=== PATIENT | female | born 1980 | race African-American/Black ===

== ENCOUNTER 2019-04-09 17:46 | Emergency (ER) | payer MEDICAID ==
[~2019-04-09] VITALS: Ht 167.6 cm; Wt 73.0 kg
--- NOTE | 2019-04-09 18:12 | NUR ---
THIS IS A 38 YO FEMALE COMING IN FOR CHEST PAINS THAT HAVE BEEN HAPPENING FOR A MONTH ON AND OFF. LOCATION OF PAIN IS UNDER LEFT BREAST CURRENTLY A 7/10 PAIN RATING. PATIENT STATES IT HAPPENS 2-3 TIMES PER DAY LASTING 15-20 MINUTES. PATIENT STATES IT HAS BEEN HAPPENING MORE OFTEN AND LASTING LONGER THE PAST FEW DAYS, IT GETS WORSE WITH CHANGE IN POSITIONING. PATIENT DENIES ANY MEDICAL HX. PATIENT PLACED ON SHOE CUTTER, NSR NOTED. CONTINUOUS SPO2 AT 100%, CYCLE BP Q1HR. NEEDS ADDRESSED CALL LIGHT IN REACH.
--- NOTE | 2019-04-09 18:48 | NUR ---
Pt report from Florencia chowdhury. This rn to assume care of pt.
[2019-04-09] MEDS ORDERED: SODIUM CHLORIDE FLUSH 10ML SYR IVF ONE (19:00)
--- NOTE | 2019-04-09 19:06 | NUR ---
Lab at bedside.
[2019-04-09 19:20] LABS: ALANINE AMINOTRANSFERASE 23 U/L (12-78); ALBUMIN 3.5 g/dL (3.4-5.0); ANION GAP 5 mmol/L (5-15); CALCIUM 8.8 mg/dL (8.5-10.1); CHLORIDE 109 mmol/L (98-107)
[2019-04-09 19:23] LABS: ALKALINE PHOSPHATASE 83 U/L (45-117); BILIRUBIN,TOTAL 0.7 mg/dL (0.2-1.0); TOTAL PROTEIN 7.4 g/dL (6.4-8.2); TROPONIN I < 0.015 ng/mL (0.000-0.045)
[2019-04-09 19:31] LABS: MEAN CORPUSCULAR HEMOGLOBIN 19.2 pg (27.0-34.8); MEAN CORPUSCULAR HGB CONC 30.4 g/dL (32.4-35.8); MEAN CORPUSCULAR VOLUME 63.4 fL (80-100); MEAN PLATELET VOLUME 7.6 fL (7.4-10.4); PLATELET COUNT 421 x10^3/uL (130-400); RED BLOOD COUNT 4.97 x10^6/uL (3.82-5.3); RED CELL DISTRIBUTION WIDTH 19.1 % (9.6-15.2)
--- NOTE | 2019-04-09 19:31 | NUR ---
Pt amb w/ steady gait to rr.
[2019-04-09 19:47] LABS: MD YES
[2019-04-09 19:51] LABS: ANISOCYTOSIS 1+; EOS#(MANUAL) 0.14 x10^3/uL (0.0-0.4); EOS% (MANUAL) 2 % (1-7); LYMPH#(MANUAL) 2.77 x10^3/uL (1-3.4); LYMPHS% (MANUAL) 39 % (22-44); MICROCYTOSIS 1+; MONOS#(MANUAL) 0.36 x10^3/uL (0.3-2.7); MONOS% (MANUAL) 5 % (2-9); SEG#(MANUAL) 3.83 x10^3/uL (1.8-6.8); SEGS% (MANUAL) 54 % (42-75)
[2019-04-09 19:52] LABS: <PLATELET ESTIMATE> ADEQUATE; <PLT MORPHOLOGY> NORMAL PLT MORPH; HYPOCHROMIA 1+
[2019-04-09 20:11] VITALS: BP 113/73
== END 2019-04-09 20:12 | disposition home or self-care (01) ==
LOC: ED 20:10
DX: R07.89 Other chest pain (principal)
CPT/HCPCS: 36415; 71046; 80053; 84484; 85025; 93005; 99284

== ENCOUNTER 2019-09-18 16:09 | Emergency (ER) | payer MEDICAID, OTHER ==
[~2019-09-18] VITALS: Ht 167.6 cm; Wt 69.1 kg
--- NOTE | 2019-09-18 17:00 | NUR ---
Bedside report from Tia RN, Pt care assumed at this time
[2019-09-18 17:08] LABS: MICROSCOPIC NOT IND
--- NOTE | 2019-09-18 17:16 | NUR ---
Pt resting in gurney, NAD, P/W/D, VSS, FCS no SOB, call light within reach, RESP WNL, Denies additional needs at this time. WCTM/
[2019-09-18 17:20] LABS: ALANINE AMINOTRANSFERASE 29 U/L (12-78); ALBUMIN 3.5 g/dL (3.4-5.0); ANION GAP 4 mmol/L (5-15); CALCIUM 8.8 mg/dL (8.5-10.1); CHLORIDE 109 mmol/L (98-107); CREATININE 0.84 mg/dL (0.55-1.02)
[2019-09-18 17:24] LABS: CULTURE INDICATED? NO
[2019-09-18 17:25] LABS: ALKALINE PHOSPHATASE 83 U/L (45-117); BILIRUBIN,TOTAL 0.5 mg/dL (0.2-1.0); TOTAL PROTEIN 7.8 g/dL (6.4-8.2)
--- NOTE | 2019-09-18 17:35 | NUR ---
Pt to US via dajuan, ANGELA, RESP WNL, SKIN WNL warm and dry.
[2019-09-18 17:41] LABS: MD YES; MEAN CORPUSCULAR HEMOGLOBIN 19.8 pg (27.0-34.8); MEAN CORPUSCULAR HGB CONC 30.6 g/dL (32.4-35.8); MEAN CORPUSCULAR VOLUME 64.7 fL (80-100); MEAN PLATELET VOLUME 7.8 fL (7.4-10.4); PLATELET COUNT 486 x10^3/uL (130-400); RED BLOOD COUNT 5.25 x10^6/uL (3.82-5.3); RED CELL DISTRIBUTION WIDTH 20.4 % (9.6-15.2)
[2019-09-18 17:44] LABS: ANISOCYTOSIS 1+; BASOS#(MANUAL) 0.06 x10^3/uL (0-0.1); BASOS% (MANUAL) 1 % (0-1); EOS#(MANUAL) 0.11 x10^3/uL (0.0-0.4); EOS% (MANUAL) 2 % (1-7); LYMPH#(MANUAL) 3.19 x10^3/uL (1-3.4); LYMPHS% (MANUAL) 58 % (22-44); MICROCYTOSIS 1+; MONOS#(MANUAL) 0.39 x10^3/uL (0.3-2.7); MONOS% (MANUAL) 7 % (2-9); SEG#(MANUAL) 1.76 x10^3/uL (1.8-6.8); SEGS% (MANUAL) 32 % (42-75)
[2019-09-18 17:45] LABS: <PLATELET ESTIMATE> INCREASED; HYPOCHROMIA 1+; LARGE PLATELETS 1+; OVALOCYTES 1+; SMALL PLATELETS 1+
[2019-09-18 18:48] VITALS: BP 110/80
--- NOTE | 2019-09-18 18:49 | NUR ---
Patient/Caregiver given discharge instructions and they have confirmed that they understand the instructions. Patient ambulatory with steady gait. Skin WNL, warm and dry, NAD, denies additional questions at this time.
== END 2019-09-18 19:01 | disposition home or self-care (01) ==
LOC: ED 17:16
DX: K80.20 Calculus of gallbladder without cholecystitis without obstruction (principal); R10.31 Right lower quadrant pain; R10.32 Left lower quadrant pain; G44.309 Post-traumatic headache, unspecified, not intractable; F17.210 Nicotine dependence, cigarettes, uncomplicated
CPT/HCPCS: 36415; 76700; 80053; 81003; 83690; 84703; 85025; 99284